=== PATIENT | female | born 1930 | race Caucasian/White ===

== ENCOUNTER → 2018-02-19 | Outpatient (CLI) | payer MEDICARE, BC ==
[~2018-02-19] MED LIST: ASPI81CH; ASPI81CH PO; ASPI81EC PO; ATOR10 PO; Amoxicillin500 MG PO; CHOL10002 PO; CYAN1000 PO; Diovan320 MG; ERGO400 PO; IBUP400 PO; MAGOXI400 PO; METO25ER PO; NITR100CA PO; VALS80 PO
[2018-02-19 11:51] LABS: Bilirubin, Urine Neg (Neg); Blood, Urine 2+ (Neg); Glucose Qualitative, Urine Neg (Neg); Ketones, Urine Neg (Neg); Leukocyte Esterase, Urine Neg (Neg); Nitrite, Urine Neg (Neg); Protein, Urine Neg (Neg); Specific Gravity, Urine 1.005 (1.003-1.022); Urobilinogen, Urine NORM (Normal)
[2018-02-19 12:17] LABS: Appearance, Urine Clear (Clear); Color, Urine Yellow (P-Yellow)
[2018-02-19 12:18] LABS: White Blood Cells, Urine 0-2 /hpf (0-5)
[2018-02-19 12:19] LABS: Bacteria Few /hpf; Squamous Epithelial Cells Few /hpf (Few)
== END ==
LOC: OLS 10:02 → LAB SHORT 10:02
PROVIDERS: Internal Medicine
DX: R31.29 Other microscopic hematuria (principal)
CPT/HCPCS: 81001; 88108

== ENCOUNTER → 2021-08-09 | Outpatient (CLI) | payer MEDICARE, BC ==
[~2021-08-09] MED LIST changes: +TEMOVATE15 G1 TOP
== END | disposition home or self-care (01) ==
LOC: LAB SHORT 13:45 → LAB 13:45
DX: D48.5 Neoplasm of uncertain behavior of skin (principal)
CPT/HCPCS: 88305

== ENCOUNTER 2021-08-11 01:21 | Day surgery (SDC) | payer MEDICARE, BC ==
[~2021-08-11 01:21] MED LIST changes: -TEMOVATE15 G1 TOP
[2021-08-11] MEDS ORDERED: TEMOVATE15 G1 TOP (08:43)
== END 2021-08-11 10:47 | disposition home or self-care (01) ==
LOC: ATC 01:21
DX: R35.0 Frequency of micturition (principal); I10 Essential (primary) hypertension; E78.5 Hyperlipidemia, unspecified; Z79.899 Other long term (current) drug therapy
CPT/HCPCS: 51798

== ENCOUNTER → 2021-08-15 | Outpatient (CLI) | payer MEDICARE, BC ==
[~2021-08-15] MED LIST changes: +TEMOVATE15 G1 TOP
[2021-08-15 14:12] LABS: Source, Urine Clean Catch
[2021-08-15 15:04] LABS: Appearance, Urine Hazy (Clear); Bilirubin, Urine Neg (Neg); Blood, Urine 1+ (Neg); Color, Urine Amber (P-Yellow); Glucose Qualitative, Urine Neg (Neg); Ketones, Urine 1+ (Neg); Leukocyte Esterase, Urine 1+ (Neg); Nitrite, Urine Neg (Neg); Protein, Urine 1+ (Neg); Urobilinogen, Urine 1+ (Normal)
[2021-08-15 15:39] LABS: Amorphous Light (0-Heavy); Bacteria Few /hpf; Mucus Heavy (0-Heavy); Squamous Epithelial Cells Few /hpf (Few)
[2021-08-15 15:40] LABS: Calcium Oxalate Crystals Few /hpf; Granular Casts 0-2 /lpf (0); Hyaline Casts 0-2 /lpf (0-2)
== END | disposition home or self-care (01) ==
LOC: LAB SHORT 13:47 → LAB FUT 08-04 10:50
PROVIDERS: Internal Medicine
DX: R30.0 Dysuria (principal)
CPT/HCPCS: 81001; 87086